=== PATIENT | female | born 1960 | race Caucasian/White ===

== ENCOUNTER 2021-04-12 09:21 | Emergency (ER) | payer BC, OTHER ==
[2021-04-12] MEDS ORDERED: CASIRIVIMAB/IMDEVIMAB 10 ML in SODIUM CHLORIDE 100 ML IVPB ONE (09:58)
[2021-04-12 10:18] VITALS: TEMP 98.7; BMI 23.0
[2021-04-12] MEDS ORDERED: SODIUM CHLORIDE 0.9% 1000 ML INFUS.BAG IV ONE (11:11)
[2021-04-12 11:23] LABS: CHLORIDE 102 mmol/L (98-107); SODIUM 136 mmol/L (136-145)
[2021-04-12 11:25] LABS: BLOOD UREA NITROGEN 14.9 mg/dL (7-18); CALCIUM 9.1 mg/dL (8.5-10.1); CO2 27 mmol/L (21-32); GLUCOSE,RANDOM 101 mg/dL (74-106)
[2021-04-12 11:35] LABS: ANION GAP 7 MMOL/L (8-16)
[2021-04-12 11:45] VITALS: BP 235/147; PULSE 106
== END 2021-04-12 12:30 | disposition left against medical advice (07) ==
LOC: JCOVINFU 09:21
PROC: 3E033GC Introduction of Other Therapeutic Substance into Peripheral Vein, Percutaneous Approach (ICD-10-PCS; principal; 2021-04-12)
DX: U07.1 COVID-19 (principal); I10 Essential (primary) hypertension
CPT/HCPCS: 36415; 80048; 84132; 99284-25; Q0240